=== PATIENT | female | born 1950 | race Caucasian/White ===

== ENCOUNTER 2017-10-01 12:43 | Outpatient (CLI) | payer MEDICARE | END 2017-10-01 12:44 | disposition home or self-care (01) | LOC: BICMRI 12:43 | PROVIDERS: ATTEND Family Medicine | DX: M47.26 Other spondylosis with radiculopathy, lumbar region (principal); M48.061 Spinal stenosis, lumbar region without neurogenic claudication | CPT/HCPCS: 72148 ==

== ENCOUNTER 2018-11-09 15:17 | Outpatient (CLI) | payer MEDICARE ==
--- NOTE | 2018-11-23 13:22 | MMO ---
Bilateral MAMMO Bilat Screen [facility]. CLINICAL HISTORY: Patient is 68 years old and is seen for screening. The patient has no family history of breast cancer. The patient has no personal history of cancer. VIEWS: The views performed were: bilateral craniocaudal with tomosynthesis and bilateral mediolateral oblique with tomosynthesis. FILMS COMPARED: The present examination has been compared to prior imaging studies performed at [facility] on 07/02/2005, 11/10/2008 and 03/10/2014. MAMMOGRAM FINDINGS: There are scattered fibroglandular densities. There are vascular calcifications seen in both breasts. There are no suspicious masses, calcifications or areas of architectural distortion. IMPRESSION: THERE IS NO MAMMOGRAPHIC EVIDENCE OF MALIGNANCY. A ROUTINE FOLLOW-UP MAMMOGRAM IN 1 YEAR IS RECOMMENDED. THE RESULTS OF THIS EXAM WERE SENT TO THE PATIENT. ACR BI-RADS Category 2 - Benign finding MAMMOGRAPHY NOTE: 1. A negative mammogram report should not delay a biopsy if a dominant of clinically suspicious mass is present. 2. Approximately 10% to 15% of breast cancers are not detected by mammography. 3. Adenosis and dense breasts may obscure an underlying neoplasm.
== END 2018-11-09 15:18 | disposition home or self-care (01) ==
LOC: BICMAMMO 15:17
PROVIDERS: ATTEND Family Medicine
DX: Z12.31 Encounter for screening mammogram for malignant neoplasm of breast (principal)
CPT/HCPCS: 77063; 77067

== ENCOUNTER 2018-11-20 14:22 | Outpatient (CLI) | payer MEDICARE ==
[~2018-11-20 14:22] MED LIST: Gadobenate Dimeglumine 529 MG/1 ML (20ML VIAL) ONE
--- NOTE | 2018-11-20 17:25 | MRI ---
MR ANGIOGRAPHY OF NECK WITH AND WITHOUT CONTRAST 11/20/18 MRA of neck performed to assess the extracranial carotid arteries. INDICATIONS: Occlusion/stenosis bilateral carotid arteries. No comparison studies available. Right common carotid artery is patent proximally. There is loss of signal in the distal right common carotid artery just proximal to the bulb and bifurcation. There is evidence of significant stenosis i nvolving the distal right common carotid and proximal right internal carotid at its origin. Right internal carotid artery otherwise shows normal signal. The left common carotid appears patent. There is no significant signal loss at the left bulb or left ICA. The vertebral arteries appear patent and symmetric. IMPRESSION: There is evidence of significant stenosis in the distal right common carotid artery and proximal righ t internal carotid artery at its origin. CTA of neck is suggested for more definitive characterizatio n of the stenosis. POS: Francy
== END 2018-11-20 14:23 | disposition home or self-care (01) ==
LOC: BICMRI 14:22
PROVIDERS: ATTEND Internal Medicine Cardiovascular Disease
DX: I65.23 Occlusion and stenosis of bilateral carotid arteries (principal)
CPT/HCPCS: 70549; A9577

== ENCOUNTER 2022-10-30 09:02 | Outpatient (CLI) | payer MEDICARE | END 2022-10-30 09:03 | disposition home or self-care (01) | LOC: BICCT 09:02 | PROVIDERS: ATTEND Family Medicine | DX: E03.9 Hypothyroidism, unspecified (principal); R74.01 Elevation of levels of liver transaminase levels; N12 Tubulo-interstitial nephritis, not specified as acute or chronic | CPT/HCPCS: 74177; 76536 ==

== ENCOUNTER 2023-01-14 07:26 | Outpatient (CLI) | payer MEDICARE ==
[2023-01-14] MEDS ORDERED: Iopamidol 370 76% 100 ML VIAL ONE (09:38)
== END 2023-01-14 07:27 | disposition home or self-care (01) ==
LOC: BICCT 07:26
PROVIDERS: ATTEND Family Medicine
DX: N05.9 Unspecified nephritic syndrome with unspecified morphologic changes (principal); R91.8 Other nonspecific abnormal finding of lung field
CPT/HCPCS: 74177; Q9967